=== PATIENT | female | born 1985 | race African-American/Black ===

== ENCOUNTER 2018-05-18 00:51 | Inpatient (IN) ==
[2018-05-18] MEDS ORDERED: Sodium Chlor 0.9% Inj 500 ML IV.SIG ONE (03:08)
--- NOTE | 2018-05-18 03:10 | ED ---
HPI General Chief complaint: Chest Pain Stated complaint: Chest Pain/Sob Time Seen by Provider: 05/18/18 03:06 Source: patient Mode of arrival: ambulatory Limitations: no limitations History of Present Illness HPI narrative: That it is associated with hunger pain, however if she eats after 7:30 PM the symptoms get worse.The patient is a 32 year old female who presents to the [facility] emergency department with a history of 4 weeks of nightly symptoms that began in her mid back. She reports the patient reports that over the last week this has been worsening. She reports that she has daily vomiting at 5 AM 1. She reports that she is also been experiencing daily loose stools 4 times per day. She denies having any blood in her stool or black or tarry stools. She denies having any weight loss. She reports that she has gained 15 pounds in the last 3 months. She denies any possibility of being as she has had a bilateral tubal ligation. She reports that the pain in her back radiates around to her chest and is a crushing sensation. She reports that it usually begins to go away when she has the vomiting. She reports that while she was she was diagnosed with acid reflux, however over the counter heartburn medications have not helped. She reports that when the chest pain occurs she begins to get short of breath. On review of systems otherwise, she denies having any known fevers, cough or congestion, neck pain, urinary symptoms, or neurologic symptoms. On further questioning, the patient reports that this pain is also associated with an upper midepigastric abdominal pain. LMP in mid April. Related Data Home Medications Medication Instructions Recorded Confirmed No Known Home Medications 05/18/18 05/18/18 Allergies Allergy/AdvReac Type Severity Reaction Status Date / Time codeine Allergy Severe Nausea/Vomi Unverified 06/22/17 17:24 ting penicillin G Allergy Severe Hives Unverified 06/22/17 17:24 Sulfa (Sulfonamide Allergy Severe Unverified 06/22/17 17:24 Antibiotics) acetaminophen AdvReac Mild NAUSEA/ Unverified 06/22/17 17:24 VOMITTING hydrocodone AdvReac Mild NAUSEA/ Unverified 06/22/17 17:24 VOMITTING PEROXIDE Allergy Severe SWELLS UP Uncoded 09/15/11 22:19 Review of Systems ROS Unobtainable All other systems reviewed negative except as stated in HPI PMFSH History History Provided By: Patient Medical History Medical History Asthma (Acute) delivery delivered (Acute) Surgical History Surgical History History of bilateral tubal ligation (Acute) Social History Social History Substance History: No History of Abuse Second Hand Smoke Exposure: Yes Smoking Status: Current every day smoker Tobacco Type: Cigarettes Cigarettes Per Day: 3 How Often Do You Have a Drink Containing Alcohol: Monthly or less Recent Travel in [facility] within the Last 8 Weeks: No Recent Out of Country Travel within the Last 8 Weeks: No Exam Const General: cooperative, no acute distress and well developed Nutritional Appearance: well nourished Orientation: alert, awake and oriented x3 HENMT Head: normocephalic and atraumatic Nose: no nasal discharge and no epistaxis Mouth: moist mucous membranes Eyes Sclera: normal sclerae Pupils: PERRL Neck Neck: trachea midline and no JVD Resp Effort & Inspection: no use of accessory muscles Auscultation: clear to auscultation bilaterally Cardio Rate: regular rate Rhythm: regular rhythm Heart Sounds: no murmurs GI Inspection: non-distended Palpation: soft, no hepatosplenomegaly and tender in the epigastrum, in the LUQ and in the RUQ; not at McBurney's point and Ivory's sign negative Auscultation: normal bowel sounds Back/Spine/Pelvis Back: no CVA tenderness Cervical Spine: normal cervical lordosis Thoracic/Lumbar Spine: thoracic and lumbar spine normal to inspection Skin General: dry skin (warm) Neuro General: alert, awake and oriented x3 Cranial Nerves: CN's II-XI intact bilaterally Speech: speech normal Motor: no movement abnormalities noted Sensory Exam: no sensory deficits noted Extrem General: normal to inspection, no clubbing, no cyanosis and no edema Psych Mood: congruent mood Affect: normal affect Judgment: judgment good Course Hospital Course: During the course of the patient's emergency department visit, the patient's history, examination, and differential diagnosis were reviewed with the patient. The patient was placed on a cardiac cath lab technologist with oximetry and frequent blood pressure monitoring. The patient had IV access obtained and blood work sent for analysis. The patient was initially provided normal saline at 500 mL bolus 1, aspirin 324 mg p.o. 1, sublingual nitroglycerin 1, Compazine 5 mg IV for nausea, morphine 4 mg IV for pain. Initial Documented Vital Signs Temperature 98.9 F 05/18/18 00:54 Pulse Rate 99 H 05/18/18 00:54 Respiratory Rate 20 05/18/18 00:54 Blood Pressure 136/72 05/18/18 00:54 Pulse Oximetry 98 05/18/18 00:54 Last Documented Vital Signs Temperature 98.9 F 05/18/18 00:54 Pulse Rate 76 05/18/18 07:13 Respiratory Rate 18 05/18/18 07:13 Blood Pressure 97/63 L 05/18/18 07:13 Pulse Oximetry 96 05/18/18 07:13 Sign Out Sign Out Data: Patient Sign Out occurred on 05/18/18 at 08:08. Patient's care was discussed, and care was transferred from Neelam Macias MD to Mainor Rinaldi MD. Sign Out Comment: The patient's case was checked out to the oncoming emergency physician to disposition the patient based on the conclusion of her workup. The patient is pending ultrasound. The patient was updated regarding her findings up until this point prior to the conclusion of my shift. Last updated by Neelam Macias MD at 05/18/18 07:36 Clinical Decision Support PERC Rule Age greater than or equal to 50: No HR greather than or equal to 100: No Sa02 on room air is less than 95%: No Unilateral Leg Swelling: No Hemoptysis: No Recent Surgery or Trauma: No Prior PE or DVT: No Hormone Use: No Wells' Criteria Questions Clinical Signs and Symptoms of DVT: No PE is primary diagnosis or equally likely: No Heart Rate greater than 100: No Immobilized at least 3 days or Surgery in previous 4 weeks: No Previous, objectively diagnosed PE or DVT: No Hemoptysis: No Malignancy with treatment within 6 months or palliative: No Wells' Criteria Score Wells' Criteria Score: 0 Medical Decision Making MDM Narrative Medical decision making narrative: Diagnostic evaluation was started to identify whether the patient is experiencing acid reflux, versus acute coronary syndrome, versus biliary colic, versus acute cholecystitis, versus pulmonary embolism. The PERC and Wells rule were used to evaluate for possible underlying pulmonary embolism. The patient was considered to be low risk and will out by PERC criteria. The patient's laboratory studies revealed a white count of 9.7, hemoglobin 14.5 , platelets 221 with 9.9 monocytes, PT 10, PTT 32.2, chemistry is remarkable for a troponin I less than 0.02, GFR of 69, creatinine 1.10, calcium 8.4, AST 14 , lipase 185, CPK 155. A chest x-ray shows no acute cardiopulmonary disease. A CT scan of the abdomen and pelvis shows cholelithiasis with diffuse gallbladder wall thickening, radiologist recommends that if there is significant clinical concern regarding cholecystitis, ultrasound examination may be performed for better evaluation of the gallbladder. Normal-appearing appendix, prominent endometrium which may be related to the phase of the patient 's menstrual cycle. An ultrasound of the gallbladder has been ordered. The patient was reexamined and her pain was improved. She was instructed regarding the laboratory findings and CT scan findings up until this point. The ultrasound is pending at the conclusion of my shift. The patient's case will be checked out to the oncoming emergency physician to disposition the patient based on the conclusion of her workup. Differential Diagnosis Differential Diagnosis: acid reflux, versus acute coronary syndrome, versus biliary colic, versus acute cholecystitis Medical Records Medical records reviewed: Yes I reviewed the patient's medical records. POC Test Results POC Urine Results: Negative Lab Data Lab results reviewed: Yes I reviewed the patient's lab results. Result diagrams: 05/18/18 03:20 05/18/18 03:20 Lab Results 05/18/18 05/18/18 05/18/18 Range/Units 03:20 03:20 03:20 WBC 9.6 (4.0-11.0) th/mm3 RBC 4.31 (4.00-5.30) mil/mm3 Hgb 14.5 (11.6-15.3) gm/dL Hct 42.3 (35.0-46.0) % MCV 98.0 (80.0-100.0) fL MCH 33.6 (27.0-34.0) pg MCHC 34.3 (32.0-36.0) % RDW 13.1 (11.6-17.2) % Plt Count 221 (150-450) th/mm3 MPV 8.1 (7.0-11.0) fL Neut % (Auto) 54.3 (16.0-70.0) % Lymph % (Auto) 32.7 (9.0-44.0) % [place] % (Auto) 9.9 H (0.0-8.0) % Eos % (Auto) 2.7 (0.0-4.0) % Baso % (Auto) 0.4 (0.0-2.0) % Neut # (Auto) 5.2 (1.8-7.7) th/mm3 Lymph # (Auto) 3.1 (1.0-4.8) th/mm3 [place] # (Auto) 1.0 H (0.0-0.9) th/mm3 Eos # (Auto) 0.3 (0.0-0.4) th/mm3 Baso # (Auto) 0.0 (0.0-0.2) th/mm3 WBC Differential . Differential Comment Auto diff final PT 10.0 (9.8-11.6) sec INR 1.0 Ratio APTT 32.2 H (24.3-30.1) sec Sodium 144 (136-145) meq/L Potassium 3.8 (3.5-5.1) meq/L Chloride 110 H (98-107) meq/L Carbon Dioxide 26.4 (21.0-32.0) meq/L Anion Gap 8 (5-15) meq/L BUN 16 (7-18) mg/dL Creatinine 1.10 H (0.50-1.00) mg/dL Estimated GFR 69 L (>89) mL/min Random Glucose 77 (74-106) mg/dL Calcium 8.4 L (8.5-10.1) mg/dL Magnesium 2.1 (1.5-2.5) mg/dL Total Bilirubin 0.2 (0.2-1.0) mg/dL AST 14 L (15-37) U/L ALT 17 (10-53) U/L Alkaline Phosphatase 71 (45-117) U/L Total Creatine Kinase 155 (26-192) U/L CK-MB (CK-2) 0.7 (0.5-3.6) ng/mL Troponin I Less than 0.02 L (0.02-0.05) ng/mL Total Protein 7.3 (6.4-8.2) g/dL Albumin 3.8 (3.4-5.0) g/dL Lipase 185 (73-393) U/L Imaging Data Radiologist's impression: ITS Impressions Chest X-Ray 05/18/18 03:08 CONCLUSION: 1. No acute cardiopulmonary disease. Abdomen/Pelvis CT 05/18/18 03:45 CONCLUSION: 1. Cholelithiasis with diffuse gallbladder wall thickening. If there is significant clinical concern regarding cholecystitis, ultrasound examination may be performed for better evaluation of the gallbladder. 2. Normal appendix. 3. Prominent endometrium which may be related to phase of menstrual cycle. ECG Data Attestation: I personally reviewed and interpreted this ECG as follows: Interpretation: The patient had an EKG done on arrival that shows a heart rate of 87, sinus rhythm, QRS duration is 85 ms, QTC [address] segment elevation is noted. T waves are inverted in V1. Discharge Plan Discharge Disposition Patient Disposition: 30 Still Patient Physicians Team ED Provider: Mainor Rinaldi Primary Care Provider: Primary Care Shereen Tristan Rxs /Orders / Referrals /Forms Prescriptions: No Action No Known Home Medications RF: 0 Discharge Instructions Patient Printed Instructions: Chest Pain (ED) Status ED Status: With Doctor
[2018-05-18] MEDS ORDERED: Sod Chloride 0.9% Inj 1,000 ML IV.SIG ONE (03:45)
[2018-05-18] MEDS ORDERED: Morphine Inj 4 MG/ML Vial IV.PUSH ONE ×2 (03:46→12:02)
[2018-05-18 03:47] LABS: Baso % (Auto) 0.4 % (0.0-2.0); Eos # (Auto) 0.3 th/mm3 (0.0-0.4); Eos % (Auto) 2.7 % (0.0-4.0); Hematocrit 42.3 % (35.0-46.0); Hemoglobin 14.5 gm/dL (11.6-15.3); Lymph # (Auto) 3.1 th/mm3 (1.0-4.8); Lymph % (Auto) 32.7 % (9.0-44.0); Mean Corpuscular HGB Conc 34.3 % (32.0-36.0); Mean Corpuscular Hemoglobin 33.6 pg (27.0-34.0); Mean Platelet Volume 8.1 fL (7.0-11.0); Mono % (Auto) 9.9 % (0.0-8.0); Neut # (Auto) 5.2 th/mm3 (1.8-7.7); Neut % (Auto) 54.3 % (16.0-70.0); Platelet Count 221 th/mm3 (150-450); Red Blood Count 4.31 mil/mm3 (4.00-5.30); Red Cell Distribution Width 13.1 % (11.6-17.2); White Blood Count 9.6 th/mm3 (4.0-11.0)
[2018-05-18 03:58] LABS: Activated Partial Thrombo Time 32.2 sec (24.3-30.1)
--- NOTE | 2018-05-18 04:00 | XR ---
EXAM DATE: 05/18/2018 3:31 AM EDT AGE/SEX: 32 years / Female INDICATIONS: Short of breath, chest pain. CLINICAL DATA: This is the patient's initial encounter. Patient reports that signs and symptoms have been present for 1 day and indicates a pain score of 2/10. MEDICAL/SURGICAL HISTORY: None. None. COMPARISON: No prior exams available for comparison. FINDINGS: A single AP view of the chest demonstrates the lungs to be symmetrically aerated without evidence of mass, infiltrate or effusion. The cardiomediastinal contours are unremarkable. Osseous structures a re intact. CONCLUSION: 1. No acute cardiopulmonary disease. Electronically signed by: Domenico Sanders MD 05/18/2018 3:59 AM EDT
[2018-05-18 04:02] LABS: Alanine Aminotransferase 17 U/L (10-53); Albumin 3.8 g/dL (3.4-5.0); Anion Gap 8 meq/L (5-15); Aspartate Aminotransferase 14 U/L (15-37); Blood Urea Nitrogen 16 mg/dL (7-18); Calcium 8.4 mg/dL (8.5-10.1); Carbon Dioxide 26.4 meq/L (21.0-32.0); Chloride 110 meq/L (98-107); Glomerular Filtration Rate 69 mL/min (>89); Glucose,Random 77 mg/dL (74-106); Lipase 185 U/L (73-393); Magnesium 2.1 mg/dL (1.5-2.5); Potassium 3.8 meq/L (3.5-5.1); Sodium 144 meq/L (136-145)
[2018-05-18 04:07] LABS: Alkaline Phosphatase 71 U/L (45-117); Creatine Kinase 155 U/L (26-192); Total Protein 7.3 g/dL (6.4-8.2)
[2018-05-18 04:19] LABS: Creatine Kinase MB 0.7 ng/mL (0.5-3.6)
[2018-05-18] MEDS ORDERED: Gadodiamide PF Inj 287 MG/ML 10 ML Syringe (for RAD MRI) IVCONTRAST ONE (04:56)
--- NOTE | 2018-05-18 05:23 | CT ---
EXAM DATE: 05/18/2018 5:04 AM EDT AGE/SEX: 32 years / Female INDICATIONS: Abdomen pain. CLINICAL DATA: This is the patient's initial encounter. Patient reports that signs and symptoms have been present for 1 day and indicates a pain score of 4/10. MEDICAL/SURGICAL HISTORY: None. None. ORAL CONTRAST: No oral contrast ingested. RADIATION DOSE: 6.57 CTDI (mGy) COMPARISON: [facility] [place], CT ABDOMEN & PELVIS W CONTRAST, 10/01/2015. . TECHNIQUE: Multiple contiguous axial images were obtained through the abdomen and pelvis following b olus infusion of 100 ml Omnipaque 350 (iohexol) nonionic water-soluble contrast as a single exam do se. No oral contrast ingested. Using automated exposure control and adjustment of the mA and/or kV a ccording to patient size, radiation dose was kept as low as reasonably achievable to obtain optimal d iagnostic quality images. DICOM format image data is available electronically for review and compari son. FINDINGS: LOWER LUNGS: The visualized lower lungs are clear. LIVER: The liver has a homogeneous density without space-occupying lesion. There is no dilation of t he biliary tree. Diffuse gallbladder wall thickening with probable gallstones. SPLEEN: Homogeneous density without enlargement. PANCREAS: Unremarkable without mass or calcification. KIDNEYS: Kidneys demonstrate symmetrical enhancement and are symmetrical in size without evidence fo r radiopaque renal calculi or hydronephrosis. ADRENAL GLANDS: Unremarkable. AORTA: Moriah-aneurysmal. BOWEL/MESENTERY: The bowel loops are grossly unremarkable. Normal appendix. The cecum and sigmoid co rita have a normal configuration. No free fluid or drainable fluid collections. ABDOMINAL WALL: Intact. RETROPERITONEUM: No evidence of adenopathy in the retrocrural, para-aortic, or deep pelvic regions. BLADDER: Contours are smooth. REPRODUCTIVE: Prominent endometrium. BONY STRUCTURES: Unremarkable. CONCLUSION: 1. Cholelithiasis with diffuse gallbladder wall thickening. If there is significant clinical concern regarding cholecystitis, ultrasound examination may be performed for better evaluation of the gallbl adder. 2. Normal appendix. 3. Prominent endometrium which may be related to phase of menstrual cycle. Electronically signed by: Domenico Sanders MD 05/18/2018 5:21 AM EDT
[2018-05-18 08:16] LABS: Amorphous Sediment,Urine Few /hpf; Bacteria,Urine Rare /hpf; Bilirubin,Urine Negative (Negative); Clarity,Urine Turbid (Clear); Color,Urine Yellow (Yellw/Straw); Glucose,Urine (UA) Negative (Negative); Leukocyte Esterase,Urine Trace (Negative); Mucus,Urine Few /lpf (Occasional); Nitrite,Urine Negative (Negative); Specific Gravity,Urine 1.026 (1.002-1.035); Squamous Epithelial Cell,Urine 16 /hpf (0-5); Urobilinogen,Urine 4 or Greater mg/dL (Less than 2)
--- NOTE | 2018-05-18 11:15 | US ---
EXAM DATE: 05/18/2018 8:06 AM EDT AGE/SEX: 32 years / Female INDICATIONS: Right upper quadrant pain. CLINICAL DATA: This is the patient's initial encounter. Patient reports that signs and/or symptoms h ave been present for 1 week and indicates a pain score of 3/10. MEDICAL/SURGICAL HISTORY: . Asthma. section. Tubal ligation. [place] [facility] [place], 05/18/2018. . MEASUREMENTS: Liver:__ 15.6 cm. Common Bile Duct:__ 6mm. FINDINGS: Liver: Normal echotexture without focal lesion or ductal dilatation. Portal Vein: Hepatopedal flow seen in portal vein. Common Duct: No intraluminal mass or stone visualized. Gallbladder: Numerous echogenic stones throughout the gallbladder lumen generating significant shadow ing. The gallbladder wall is thickened measuring 6 mm. No pericholecystic fluid. The patient was not tender over the gallbladder during the scanning. Pancreas: The visualized portions are within normal limits Right Kidney: Normal echotexture and cortical thickness. No mass or hydronephrosis. Other: None. CONCLUSION: 1. Cholelithiasis with thickened gallbladder wall but no pericholecystic fluid or sonographic Ivory 's sign. Acute cholecystitis versus chronic cholecystitis. 2. Common bile duct just out of the range of normal in terms of size. 3. Consideration could be made to HIDA scan to further assess. Electronically signed by: Konstantin Marie MD 05/18/2018 11:13 AM EDT
[2018-05-18] MEDS ORDERED: POTASSIUM ACETATE IV.CONT SCH (13:00)
[2018-05-18] MEDS ORDERED: SOD CHLORIDE 0.9% IV.CONT SCH (13:00)
[2018-05-18] MEDS: Ciprofloxacin 400 MG/200 ML 400 MG/200 ML PIGGYBACK IV.SIG SCH (14:14)
--- NOTE | 2018-05-18 14:15 | ECG ---
Date Performed: 05/18/2018 Time Performed: 01:07:54 PTAGE: 32 years EKG: Sinus rhythm POSSIBLE LEFT ATRIAL ENLARGEMENT BORDERLINE ECG Compared to prior electrocardiogram, rate has decrea sed PREVIOUS TRACING : 09/20/2011 02.52 DOCTOR: Yovani Rivera Interpretating Date/Time 05/18/2018 14:14:18
--- NOTE | 2018-05-18 15:41 | MH ---
cc: Kyle Rivas MD DATE OF ADMISSION: 05/18/2018 CHIEF COMPLAINT: Abdominal pain, right upper quadrant abdominal pain, cholecystitis. HISTORY OF PRESENT ILLNESS: The patient is a 32-year-old female who presents with acute onset of abdominal pain. She states the pain has been going on approximately 4 weeks, but has increased in intensity and gotten worse just recently. She states that she has symptoms associated with eating and radiation to her back and located in the right upper quadrant. She says it is worse with movement, better with lying still. She does note attempting to treat with Tums and Pepto-Bismol without relief. She came to the emergency department for evaluation including a CT scan showing acute cholecystitis with cholelithiasis. Surgery was consulted. PAST MEDICAL HISTORY: Asthma. PAST SURGICAL HISTORY: . SOCIAL HISTORY: Positive smoking. Occasional ETOH. Denies IVDA. ALLERGIES: CODEINE. PENICILLIN. SULFA. ACETAMINOPHEN. MEDICATIONS: See electronic medical record. FAMILY HISTORY: Denies diabetes or hypertension. REVIEW OF SYSTEMS: GENERAL: Denies fevers, chills. HEENT: Denies eye pain, ear pain. NECK: Denies swelling or pain. LUNGS: Denies cough or wheeze. HEART: Denies palpitations or chest pain. ABDOMEN: Complains of nausea, vomiting, abdominal pain. GENITOURINARY: Denies dysuria or hematuria. ENDOCRINE: Denies polyuria or polydipsia. INTEGUMENT: Denies new mass or lesions. NEUROLOGIC: Denies numbness or tingling. PSYCHIATRIC: Denies change in mood or sensorium. PHYSICAL EXAMINATION: GENERAL: In no acute distress. VITAL SIGNS: Temperature 98.9, respirations 20, pulse 99, blood pressure 136/72, saturation 98%. HEENT: Pupils equal, round, reactive. NECK: Supple. Trachea midline. LUNGS: Clear to auscultation, bilateral expansion. HEART: S1, S2. Regular. ABDOMEN: Soft. Positive tenderness to palpation in right upper quadrant. No rebound, no guarding. EXTREMITIES: Warm and well perfused. NEUROLOGIC: GCS 15, 5/5 motor in all extremities. INTEGUMENT: No masses or lesions. BACK: Normal curvature. LABORATORY AND DIAGNOSTIC DATA: WBC 9.6, hemoglobin 14.5, hematocrit 42.3, platelets 221. Sodium 144, potassium 3.8, chloride 110, BUN 16, creatinine 1.1, AST 14, ALT 17. Troponin 0.7. Lipase 185. IMAGING STUDIES: CT scan reviewed by myself showing acute cholecystitis with cholelithiasis. Ultrasound confirming this with a thickened gallbladder wall and cholelithiasis. ASSESSMENT: The patient is a 32-year-old female with acute onset of abdominal pain, acute cholecystitis. PLAN: At this point, the patient with acute cholecystitis. Therefore, the patient is to be n.p.o., IV fluids, pain control. We will start IV antibiotics including Cipro and Flagyl. Discussed with the patient in detail regarding the need for laparoscopic appendectomy. We will plan for surgical intervention. The patient needs to be admitted and pain control. MD PEARL Rod/BASHIR , 03:15 PM , 03:39 PM
[2018-05-18] MEDS: Sod Chloride 0.9% Inj 1,000 ML IV.CONT SCH (19:08)
[2018-05-19] MEDS: Ciprofloxacin 400 MG/200 ML 400 MG/200 ML PIGGYBACK IV.SIG SCH ×2 (02:08→15:51)
[2018-05-19] MEDS: Sod Chloride 0.9% Inj 1,000 ML IV.CONT SCH (02:11)
[2018-05-19] MEDS: Morphine Inj 4 MG/ML Vial IV.PUSH PRN (02:43)
[2018-05-19] MEDS ORDERED: Bupivacaine/Epinephrine Inj 0.25% 50 ML Vial ONE (06:00)
--- NOTE | 2018-05-19 06:35 | P.OP ---
- Preoperative Diagnosis (1) Acute cholecystitis due to biliary calculus - Postoperative Diagnosis (1) Acute cholecystitis due to biliary calculus Date of procedure: 05/19/18 Procedure: lap jesús Anesthesia: GETA Surgeon: Kyle Rivas MD Banquet Lead: bib Estimated blood loss (mL): 5 Pathology: other (gallbladder) Operation and Findings: distended gallbladder,with stones
[2018-05-19] MEDS ORDERED: fentaNYL Citrate Inj 100 MCG/2 ML Ampul ONE (07:01)
[2018-05-19] MEDS ORDERED: *morphine SULFATE 4 MG/ML PERIprocedure ONLY ONE ×2 (07:45→08:05)
[2018-05-19] MEDS ORDERED: Phenylephrine/NS 1000 MCG/10ML Syringe IV.PUSH ONE (12:00)
[2018-05-19] MEDS ORDERED: Glycopyrrolate Inj 1 MG/5 ML Syringe IV.PUSH ONE (12:00)
[2018-05-19] MEDS ORDERED: Ketorolac Inj 30 MG/ML (IVP) Vial IV.PUSH ONE (12:00)
[2018-05-19] MEDS ORDERED: Neostigmine Inj 5 MG/5 ML Syringe IV.PUSH ONE (12:00)
[2018-05-19] MEDS ORDERED: Lidocaine PF 1% Inj 5 ML Syringe INFILTRATN ONE (12:00)
[2018-05-20] MEDS: Ciprofloxacin 400 MG/200 ML 400 MG/200 ML PIGGYBACK IV.SIG SCH ×2 (02:25→14:08)
[2018-05-20] MEDS: Morphine Inj 4 MG/ML Vial IV.PUSH PRN (04:42)
--- NOTE | 2018-05-20 09:29 | P.PNGS ---
Subjective Patient reports: feels better, pain is less (tolerating diet) Physical Exam Vital signs: Vital Signs 05/19/18 10:15 05/19/18 12:00 05/19/18 16:00 Temperature 97.9 F 98 F Pulse Rate 76 60 Respiratory Rate 18 18 16 Blood Pressure 132/69 109/69 Pulse Oximetry 99 98 05/19/18 16:11 05/19/18 20:30 05/20/18 00:00 Temperature 98.6 F 99.2 F Pulse Rate 56 L 62 Respiratory Rate 18 18 Blood Pressure 119/85 115/75 Pulse Oximetry 99 99 05/20/18 04:00 05/20/18 05:00 05/20/18 08:09 Temperature 99 F 98.7 F Pulse Rate 62 61 Respiratory Rate 16 18 Blood Pressure 112/57 L 114/72 Pulse Oximetry 98 100 Intake & Output 05/19/18 05/20/18 05/20/18 18:59 06:59 18:59 Intake Total 2540 / 2540 300 / 300 720 / 720 Output Total 5 / 5 Balance 2535 / 2535 300 / 300 720 / 720 Intake: IV 300 / 300 300 / 300 Cipro 400 MG/200 ML Inj 400 mg 200 / 200 200 / 200 In 200 ml @ 200 mls/hr IV.SIG Q12H ARNOLDO Rx#:[id number] Flagyl 500 MG Inj 100 ML @ 100 100 / 100 100 / 100 mls/hr IV.SIG Q8H ARNOLDO Rx#: [id number] Oral 1440 / 1440 720 / 720 Anesthesia Amount 800 / 800 Output: Estimated Blood Loss 5 / 5 Other: # Voids 5 2 Date of Last Bowel Movement 05/18/18 # Bowel Movements 0 - Routine Respiratory Exam Present: CTA bilaterally - Routine Cardiovascular Exam Present: RRR, S1, S2 - Routine Abdominal Exam Present: soft (incisions well healing c/d/i) Assessment and Plan - Plan POD 1 Lap jesús doing well PLAN Reg diet oob pain control abx d/c later today after lunch
--- NOTE | 2018-05-20 09:47 | MP ---
cc: Kyle Rivas MD DATE OF OPERATION: 05/19/2018 PREOPERATIVE DIAGNOSIS: Acute cholecystitis with cholelithiasis. POSTOPERATIVE DIAGNOSIS: Acute cholecystitis with cholelithiasis. PROCEDURE PERFORMED: Laparoscopic cholecystectomy. SURGEON: Kyle Rivas MD FACILITIES MANAGER: Tara Stover. ANESTHESIA: GETA. IV FLUIDS: See anesthesia sheet. ESTIMATED BLOOD LOSS: 5 mL. DRAINS: None. COMPLICATIONS: None. WOUND CLASSIFICATION: Clean/contaminated. SPECIMENS: Gallbladder with gallstones. FINDINGS: Acutely inflamed gallbladder, thickened gallbladder wall with multiple large stones. INDICATIONS: The patient is a 32-year-old female who presents with acute onset of right upper quadrant abdominal pain. The pain had been going on for several weeks, worse in the last week in severity. A CT scan, ultrasound findings of thickened gallbladder wall with multiple stones. Decision for laparoscopic cholecystectomy. DETAILS OF PROCEDURE: The patient was taken to the operating suite, placed in supine position. She was prepped and draped in the usual sterile fashion after induction of general endotracheal anesthesia. A brief timeout done stating correct patient, procedure, and surgical site. We were all in agreement with this. Attention first directed to the umbilicus where a stab tobias incision was made with an 11 blade. Veress needle placed. Intra-abdominal placement confirmed with saline drop test. The abdomen insufflated to 15 mm pneumoperitoneum. The Veress needle changed for a 5 mm endoscope Visiport. On cursory inspection, no evidence of injury. Three other ports placed, one 12 mm right epigastric followed by two 5 mm right subcostal ports. The patient placed in reverse Trendelenburg and airplaned to the left. The gallbladder fundus was grasped and retracted cephalad. Minimal adhesions were taken down from the gallbladder. The cystic duct and cystic artery were dissected out using [place] electro Bovie cautery. Two clips were placed proximal on the cystic artery and 1 distal. Three clips placed proximal on the cystic duct and 1 distal. Endo Evelia were used to transect the cystic duct and cystic artery. The gallbladder was removed from the gallbladder fossa with hook electro Bovie cautery. Gallbladder placed in an Endo Catch bag and removed from the epigastric port. Hemostasis was obtained. Pneumoperitoneum was removed. The ports were removed. The epigastric port was closed with a 0 Vicryl fascial stitch [id number] and the subcuticular 4-0 Monocryl was used for all port incisions. Sterile dressings were then placed. The patient tolerated the procedure well. There were no operative complications. All lap and instrument counts were correct at the end of the procedure. The patient was extubated and taken stable to PACU. MD PEARL Rod/ROGERIO , 09:27 AM , 09:46 AM
--- NOTE | 2018-05-20 10:00 | P.DS ---
Date of admission: 05/18/18 13:39 Primary care physician: No Primary Care Physician Attending physician on discharge: Kyle Rivas Anticipated date of discharge: 05/20/18 Brief History from admission: 32 year old female s/p laparoscopic cholecystectomy. DS: Diagnosis - Discharge Diagnosis (1) Acute cholecystitis due to biliary calculus Status: Acute DS: Summary Hospital Course: This is a 32 year old female s/p laparoscopic cholecystectomy. She was able to tolerate a regular diet. Her pain was controlled using oral pain medications. She will follow up in the office on May 27. - Time Spent with Patient Total time spent providing and/or coordinating discharge services: - Quality: VTE Deep Vein Thrombosis/Pulmonary Embolism Present on Admission: No Exam Vital signs: Vital Signs 05/19/18 10:15 05/19/18 12:00 05/19/18 16:00 Temperature 97.9 F 98 F Pulse Rate 76 60 Respiratory Rate 18 18 16 Blood Pressure 132/69 109/69 Pulse Oximetry 99 98 05/19/18 16:11 05/19/18 20:30 05/20/18 00:00 Temperature 98.6 F 99.2 F Pulse Rate 56 L 62 Respiratory Rate 18 18 18 Blood Pressure 119/85 115/75 Pulse Oximetry 99 99 05/20/18 04:00 05/20/18 05:00 05/20/18 08:09 Temperature 99 F 98.7 F Pulse Rate 62 61 Respiratory Rate 16 16 18 Blood Pressure 112/57 L 114/72 Pulse Oximetry 98 100 Intake & Output 05/19/18 05/20/18 05/20/18 18:59 06:59 18:59 Intake Total 2540 / 2540 300 / 300 820 / 820 Output Total 5 / 5 Balance 2535 / 2535 300 / 300 820 / 820 Intake: IV 300 / 300 300 / 300 100 / 100 Cipro 400 MG/200 ML Inj 400 mg 200 / 200 200 / 200 In 200 ml @ 200 mls/hr IV.SIG Q12H ARNOLDO Rx#:[id number] Flagyl 500 MG Inj 100 ML @ 100 100 / 100 100 / 100 100 / 100 mls/hr IV.SIG Q8H ARNOLDO Rx#: [id number] Oral 1440 / 1440 720 / 720 Anesthesia Amount 800 / 800 Output: Estimated Blood Loss 5 / 5 Other: # Voids 5 2 Date of Last Bowel Movement 05/18/18 # Bowel Movements 0 Narrative: Alert and awake Cardio: RRR Resp: CTAB Abd: lap sites c/d/i; expected post op pain Results Procedures completed during hospitalization: Laparoscopic cholecystectomy Pending studies at discharge: Pending at discharge 05/19/18 08:39 Surgical [PTH] Routine - Impressions ITS Impressions Chest X-Ray 05/18/18 03:08 CONCLUSION: 1. No acute cardiopulmonary disease. Abdomen/Pelvis CT 05/18/18 03:45 CONCLUSION: 1. Cholelithiasis with diffuse gallbladder wall thickening. If there is significant clinical concern regarding cholecystitis, ultrasound examination may be performed for better evaluation of the gallbladder. 2. Normal appendix. 3. Prominent endometrium which may be related to phase of menstrual cycle. Gallbladder Ultrasound 05/18/18 06:02 CONCLUSION: 1. Cholelithiasis with thickened gallbladder wall but no pericholecystic fluid or sonographic Ivory's sign. Acute cholecystitis versus chronic cholecystitis. 2. Common bile duct just out of the range of normal in terms of size. 3. Consideration could be made to HIDA scan to further assess. Discharge Plan - Discharge Disposition Patient Disposition: 01 Discharge Home - Discharge Condition Condition: Good - Discharge Order Discharge Orders: Discharge Order (Routine); Ordered 05/20/18 Ordered By: Deanne Curry - Discharge Details Anticipated Discharge Date: 05/20/18 Discharge Comment: rx on chart; DC after lunch - Physicians Team Primary Care Provider: Primary Care Azalea,Shereen Attending Provider: Kyle Rivas Other Providers: Surgeons,[facility]
== END 2018-05-20 15:20 | disposition home or self-care (01) ==
LOC: NEPE 00:51 → NEDA 13:39 → H6YA 18:07
PROVIDERS: ADMIT Surgery; ATTEND Surgery